=== PATIENT | female | born 1965 | race Caucasian/White ===

== ENCOUNTER 2024-05-26 17:28 | Emergency (ER) | payer MEDICAID, SELFPAY ==
[2024-05-26 17:29] VITALS: BMI 38.4
[2024-05-26 17:53] VITALS: BP 175/96; PULSE 66; RESP 18; TEMP 36.5; O2SAT 99; BMI 38.8
--- NOTE | 2024-05-26 18:15 | PD.EDADULT ---
ED General RME/HPI General Chief complaint: General Adult/Misc Complain Stated complaint: MY FYYBROMYALGIA IS FLARING UP X3WK Time Seen by Provider: 05/26/24 18:01 Source: patient Arrival date/time: 05/26/24 17:28 58-year-old female with past medical history of fibromyalgia and rheumatoid arthritis presents emergency department complaining of generalized body aches and joint pain for over 3 weeks. Patient denies any fever, chills, cough, shortness of breath, chest pain, nausea vomiting, diarrhea, or any other associated symptom. Mode of arrival: ambulatory Limitations: no limitations Related Data Previous Rx's ?Medication ?Instructions ?Recorded hydrocodone 10 mg-acetaminophen 1 tab PO Q8H PRN pain #15 tabs 12/31/19 325 mg tablet ([place]) ibuprofen 800 mg tablet 800 mg PO Q8H PRN pain #30 tabs 12/31/19 tramadol 50 mg tablet 50 mg PO QDAY 3 days #3 tabs 05/26/24 Allergies Allergy/AdvReac Type Severity Reaction Status Date / Time codeine Allergy Mild Nausea Verified 05/26/24 17:32 morphine Allergy Mild Agitated Verified 05/26/24 17:32 Review of Systems Review of Systems Systems Reviewed: All systems reviewed, normal except as documented Constitutional Constitutional: Reports system reviewed and no additional complaints, except as documented, Reports body ache(s), Denies chills and Denies fever(s) Eyes Eyes: Reports system reviewed and no additional complaints, except as documented and Denies change in vision ENT Ears, Nose, Mouth, and Throat: Reports system reviewed and no additional complaints, except as documented, Denies disequilibrium, Denies dizziness, Denies sore throat and Denies vertigo Cardiovascular Cardiovascular: Reports system reviewed and no additional complaints, except as documented, Denies chest pain and Denies dyspnea Respiratory Respiratory: Reports system reviewed and no additional complaints, except as documented, Denies chest congestion, Denies cough and Denies dyspnea Gastrointestinal Gastrointestinal: Reports system reviewed and no additional complaints, except as documented, Denies abdominal pain, Denies nausea and Denies vomiting Musculoskeletal Musculoskeletal: Reports system reviewed and no additional complaints, except as documented, Denies abnormal gait and Denies arthralgias Integumentary/Breasts Skin/Breast: Reports system reviewed and no additional complaints, except as documented, Denies erythema, Denies rash and Denies wounds Neurologic Neurologic: Reports system reviewed and no additional complaints, except as documented, Denies abnormal gait, Denies disequilibrium, Denies dizziness and Denies vertigo Past Medical History Past Medical History CARDIAC: Negative Congestive Heart Failure RESPIRATORY: Negative Chronic Obstructive Pulmonary Disease (COPD) GENITOURINARY: Negative Renal Disease ENDOCRINE: Negative Diabetes Mellitus Type 1 or Diabetes Mellitus Type 2 Social History SMOKING STATUS: Current every day smoker ED Exam General Limitations: Present no limitations General appearance: Present alert and in no apparent distress Head Head exam: Present atraumatic Eye Eye exam: Present normal appearance, PERRL and EOMI ENT ENT exam: Present normal exam, normal oropharynx and mucous membranes moist Neck Neck exam: Present normal inspection, full ROM and trachea midline Chest Chest inspection: Present normal inspection and symmetric chest wall rise Respiratory Respiratory exam: Present normal lung sounds bilaterally Cardiovascular Cardiovascular exam: Present regular rate, normal rhythm and normal heart sounds Abdominal Exam Abdominal exam: Present soft and normal bowel sounds Extremities Exam Extremities exam: Present normal inspection and full ROM Back Exam Back exam: Present normal inspection and full ROM Neurological Exam Neurological exam: Present alert, oriented X3 and CN II-XII intact Psychiatric Psychiatric exam: Present normal affect and normal mood Skin Skin exam: Present warm, dry, intact and normal color Course Quality Measures none Orders Category Date Time Status Acetaminophen Tab [Tylenol ES Tab] Med 05/26/24 19:40 Discontinued 1,000 mg PO X1 ONE Diazepam [Valium] Med 05/26/24 18:14 Discontinued 5 mg PO X1 ONE Ketorolac Inj [Toradol Inj] Med 05/26/24 18:14 Discontinued 30 mg IM X1 ONE Vital Signs Vital signs: Vital Signs Temperature 97.7 F 05/26/24 17:53 Pulse Rate 66 05/26/24 17:53 Respiratory Rate 18 05/26/24 17:53 Blood Pressure 175/96 H 05/26/24 17:53 Pulse Oximetry (%) 99 05/26/24 17:53 Oxygen Delivery Method Room Air 05/26/24 17:53 99% room air within normal limits MDM Patient data External records reviewed:: [facility] previous records Clinical information provided by:: patient Social determinants that could affect healthcare access:: none Patient has the following chronic illnesses:: See chart How is presenting disease/condition affected by chronic disease/condition?: exacerbated by Evaluation data The following diagnostics were reviewed and interpreted by me:: other (specify) (N/A) Lab and/or radiology exams considered but not ordered:: N/A Interpretation Summary: N/A Medications Medications considered but not ordered:: Ordered Medication administrations:: Medication Administration History Discontinued Medications Acetaminophen (Acetaminophen 500 Mg Tablet) 1,000 mg PO X1 ONE Stop: 05/26/24 19:41 Last Admin: 05/26/24 19:50 Dose: 1,000 mg Documented By: OA Diazepam (Diazepam 5 Mg Tablet) 5 mg PO X1 ONE Stop: 05/26/24 18:15 Last Admin: 05/26/24 18:20 Dose: 5 mg Documented By: OA Ketorolac Tromethamine (Ketorolac Inj 60 Mg/2 Ml Vial) 30 mg IM X1 ONE Stop: 05/26/24 18:15 Last Admin: 05/26/24 18:20 Dose: 30 mg Documented By: OA Given Consultations Consultation(s) initiated? (list below): No Diagnosis Differential Diagnosis ED Complaint MDM: Viral infection, influenza, COVID Most likely diagnosis given after review of the tests above:: Fibromyalgia Admission Indicated Admission indicated?: not indicated Explain why admission is indicated or not indicated:: No admission criteria Admission Request Was there a request for admission?: No Disposition Plan Disposition Plan: Discharge Discharge Attestation Discharge Attestation: The patient and all family members were given an opportunity to ask questions and understood the discharge instructions. Discharge instructions specifically effects, indications for sooner follow up or return to the emergency department, and the expected course of current diagnosis. Patient condition: Stable Medical Decision Making MDM Narrative MDM Narrative: 58-year-old female with past medical history of fibromyalgia and rheumatoid arthritis presents emergency department complaining of generalized body aches and joint pain for over 3 weeks. Patient denies any fever, chills, cough, shortness of breath, chest pain, nausea vomiting, diarrhea, or any other associated symptom. Patient appears nontoxic and hemodynamically stable. No adventitious lung sounds on auscultation. Patient given pain medication and muscle relaxer and reported improvement in pain. Patient discharged home on tramadol prescription and instructed to follow-up with primary care provider and request referral to pain management. Instructed to return to emergency department for any worsening symptoms or as needed. Differential Diagnosis Differential Diagnosis: Viral infection, influenza, COVID Discharge Plan Plan Patient Disposition: HOME (Self Care) Disposition Comment: Stable Prescriptions/Referrals Prescriptions/Med Rec: New tramadol 50 mg tablet 50 mg PO QDAY 3 Days Qty: 3 0RF No Action hydrocodone-acetaminophen [[place]] 10-325 mg tablet 1 tab PO Q8H MDD 4 g Tylenol PRN (Reason: pain) Qty: 15 0RF ibuprofen 800 mg tablet 800 mg PO Q8H PRN (Reason: pain) Qty: 30 0RF Referrals: No Primary/Family,Physician [Primary Care Provider] - In 1 week Problem List Clinical Impression: Fibromyalgia Patient/Caregiver Discharge Instructions Discharge Activity: activity as tolerated Education Materials: Understanding Fibromyalgia, Managing Fibromyalgia, ED Pain, Acute, Uncertain Cause, ED Fibromyalgia Additional Instructions: Take medication as prescribed. Follow-up with primary care provider and request referral to pain specialist if symptoms persist. Return to emergency department for any worsening symptoms or as needed. Print Language: Yakut Stand Alone Forms: Jess Award Info., Patient Portal Info Letter PA/OCCUPATIONAL HEALTH SPECIALIST Supervising Physician PA/OCCUPATIONAL HEALTH SPECIALIST Supervising Physician: Dr. Bowers
[2024-05-26] MEDS: KETOROLAC INJ 60 MG/2 ML VIAL 30 MG IM (18:20)
[2024-05-26] MEDS: DIAZEPAM 5 MG TABLET PO (18:20)
[2024-05-26] MEDS: ACETAMINOPHEN 500 MG TABLET 1000 MG PO (19:50)
== END 2024-05-26 22:08 | disposition home or self-care (01) ==
PROVIDERS: Emergency Provider Emergency Medicine
DX: M79.7 Fibromyalgia (principal)
CPT/HCPCS: 96372; 99283; J1885; A9270